=== PATIENT | female | born 1955 | race Hispanic/Latino ===

== ENCOUNTER 2021-02-13 09:37 | Emergency (ER) | payer MEDICARE ==
[~2021-02-13] VITALS: Ht 152.4 cm; Wt 59.1 kg
[2021-02-13] MEDS ORDERED: BENICAR5 MG PO (09:54)
[2021-02-13] MEDS ORDERED: METFORMIN HCL500 MG PO (09:54)
[2021-02-13] MEDS ORDERED: ATORVASTATIN CA20 MG PO (09:54)
[2021-02-13] MEDS ORDERED: DIAZEPAM5 MG PO (09:54)
[2021-02-13] MEDS ORDERED: HYDROCHLOROTHIA25 MG PO (09:54)
[2021-02-13 11:34] VITALS: BP 116/66
== END 2021-02-13 11:32 | disposition home or self-care (01) ==
LOC: FSED 10:02
DX: R51.9 Headache, unspecified (principal); R42 Dizziness and giddiness; M54.2 Cervicalgia; E11.65 Type 2 diabetes mellitus with hyperglycemia; I10 Essential (primary) hypertension; E78.5 Hyperlipidemia, unspecified; F41.9 Anxiety disorder, unspecified; R94.31 Abnormal electrocardiogram [ECG] [EKG]
CPT/HCPCS: 70450; 72125; 80053; 81003; 82553; 84484; 85025; 93005; 99284